=== PATIENT | female | born 1995 | race Two or more races ===

== ENCOUNTER 2017-02-25 18:07 | Emergency (ER) | payer BC, OTHER ==
[~2017-02-25] VITALS: Ht 162.6 cm; Wt 59.0 kg
[2017-02-25 18:27] VITALS: BP 139/86
[2017-02-25] MEDS ORDERED: IBUPROFEN 600 MG TAB PO ONE (20:00)
== END 2017-02-25 20:33 | disposition home or self-care (01) ==
LOC: ER 18:15
DX: S00.93XA Contusion of unspecified part of head, initial encounter (principal); J45.909 Unspecified asthma, uncomplicated; V49.49XA Driver injured in collision with other motor vehicles in traffic accident, initial encounter; Y93.89 Activity, other specified; Y99.8 Other external cause status; Y92.410 Unspecified street and highway as the place of occurrence of the external cause